=== PATIENT | male | born 1975 | race American Indian/Alaskan Native ===

== ENCOUNTER 2017-06-22 23:07 | Inpatient (IN) | payer SELFPAY ==
[2017-06-22] MEDS ORDERED: TYLENOL ONE (23:15)
[2017-06-22] MEDS ORDERED: TYLENOL PO ONE (23:31)
[2017-06-23 00:04] LABS: Hematocrit 36.3 % (35.5-45.6); Mean Corpuscular HGB Conc 33 % (32-34); Mean Corpuscular Hemoglobin 30 pg (28-32); Mean Corpuscular Volume 90 fl (84-94); Platelet Count 288 K/mm3 (140-440); Red Blood Count 4.04 M/mm3 (3.65-5.03); Red Cell Distribution Width 15.9 % (13.2-15.2)
[2017-06-23 00:19] LABS: White Blood Count 27.1 K/mm3 (4.5-11.0)
[2017-06-23 00:20] LABS: INR 1.17 (0.87-1.13)
[2017-06-23 00:26] LABS: Alanine Aminotransferase 30 units/L (7-56); Albumin 3.7 g/dL (3.9-5); Albumin/Globulin Ratio 0.8 %; Alkaline Phosphatase 80 units/L (35-129); Anion Gap 21 mmol/L; Blood Urea Nitrogen 9 mg/dL (9-20); Calcium 9.1 mg/dL (8.4-10.2); Carbon Dioxide 21 mmol/L (22-30); Chloride 96.2 mmol/L (98-107); Glucose 174 mg/dL (75-100); Potassium 4.2 mmol/L (3.6-5.0); Sodium 134 mmol/L (137-145); Total Protein 8.2 g/dL (6.3-8.2)
[2017-06-23 04:29] LABS: Basophils % (Manual) 0 % (0.0-1.8); Blastocytes % (Manual) 0 %; Eosinophils % (Manual) 0 % (0.0-4.3)
[2017-06-23 04:30] LABS: Anisocytosis 1+; Diff Status Complete; Spherocytes Few
[2017-06-23] MEDS ORDERED: TORADOL IV ONE (04:54)
[2017-06-23] MEDS ORDERED: TYLENOL PO ONE (04:54)
[2017-06-23] MEDS ORDERED: NACL 0.9% 1000 ML 1,000 ML IV ONE ×3 (04:54→06:40)
[2017-06-23] MEDS ORDERED: TORADOL ONE (04:55)
[2017-06-23] MEDS ORDERED: NACL 0.9% 1000 ML 1,000 ML ONE (04:55)
--- NOTE | 2017-06-23 06:05 | Cat Scan Report ---
FINAL REPORT PROCEDURE: CT HEAD/BRAIN WO CON TECHNIQUE: Computerized tomography of the head was performed without contrast material. HISTORY: Headache COMPARISON: No prior studies are available for comparison. FINDINGS: Skull and scalp: Normal. Paranasal sinuses: Normal. Ventricles and subarachnoid spaces: Normal. Cerebrum: No evidence of hemorrhage, acute infarction or mass . Cerebellum and brainstem: No evidence of hemorrhage, acute infarction or mass. Vasculature: Normal. Comments: None. IMPRESSION: Normal Examination
[2017-06-23 06:25] LABS: Bilirubin,Urine NEG (Negative); Blood,Urine SM (Negative); Ketones,Urine NEG (Negative); Leukocyte Esterase,Urine NEG (Negative); Mucus,Urine 3+ /HPF; Nitrite,Urine NEG (Negative)
[2017-06-23 06:27] LABS: Protein,Urine >500 mg/dL (Negative)
[2017-06-23] MEDS ORDERED: VANCOMYCIN/NS 1 GM/250 ML 1 GM/250 ML BAG IV ONE (06:40)
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
[2017-06-23] MEDS ORDERED: VANCOMYCIN VIAL IV ONE (07:59)
[2017-06-23] MEDS ORDERED: VANCOMYCIN PHARMACY TO DOSE IV SCH (08:00)
[2017-06-23] MEDS: CLEOCIN 900 MG/50 mL 900 MG/50 ML BAG IV ONE ×2 (08:40→12:29)
--- NOTE | 2017-06-23 09:17 | XRay Report ---
Chest 2 views: History: Fever. Findings: Normal cardiomediastinal silhouette. Trachea is midline. No consolidation, pneumothorax or pleural effusion. Impression: No acute cardiopulmonary findings.
--- NOTE | 2017-06-23 11:30 | History and Physical Report ---
History of Present Illness Date of examination: 06/23/17 Date of admission: 06/23/17 07:36 Chief complaint: fever, h/a History of present illness: 41-year-old male with no medical history here with complaint of fever throat and dental pain for the last month. Patient states he has been having intermittent chills over the course of last month. Over the last couple of days he's had significant pain in his teeth. He complains of a headache and a fever. He has no photophobia. He does complain of some neck pain but he has no neck stiffness or meningismus. Denies cough shortness of breath dysuria. 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 Patient denies any cough or cold-like symptoms. No nausea or vomiting. No frequency or dysuria. Past History Past Medical History: No medical history Past Surgical History: No surgical history Social history: no significant social history Family history: no significant family history Medications and Allergies Allergies Allergy/AdvReac Type Severity Reaction Status Date / Time No Known Allergies Allergy Unverified 10/02/15 07:50 Active Meds: Active Medications Enoxaparin Sodium (Lovenox) 40 mg SUB-Q QDAY ANNE Piperacillin Sod/Tazobactam Sod (Zosyn/Ns 4.5gm/100ml) 4.5 gm in 100 mls @ 200 mls/hr IV Q8H ANNE PRN Reason: Protocol Vancomycin HCl 1,250 mg/ (Sodium Chloride) 262.5 mls @ 166.667 mls/hr IV Q12H ANNE Vancomycin HCl (Vancomycin Pharmacy To Dose) 1 each IV PKCONSULT ANNE PRN Reason: Protocol Review of Systems All systems: negative Exam - Constitutional Vitals: Temp Pulse Resp BP Pulse Ox 102.3 F H 108 H 20 119/56 99 06/23/17 10:25 06/23/17 10:25 06/23/17 10:25 06/23/17 10:25 06/23/17 09:02 General appearance: Present: no acute distress, well-nourished - EENT Eyes: Present: PERRL ENT: hearing intact, clear oral mucosa - Neck Neck: Present: supple, normal ROM - Respiratory Respiratory effort: normal Respiratory: bilateral: CTA - Cardiovascular Heart Sounds: Present: S1 & S2. Absent: rub, click - Extremities Extremities: pulses symmetrical, No edema Peripheral Pulses: within normal limits - Abdominal General gastrointestinal: Present: soft, non-tender, non-distended, normal bowel sounds Male genitourinary: Present: normal - Integumentary Integumentary: Present: clear, warm, dry - Musculoskeletal Musculoskeletal: gait normal, strength equal bilaterally - Psychiatric Psychiatric: appropriate mood/affect, intact judgment & insight - Neurologic Neurologic: CNII-XII intact, moves all extremities Results - Labs CBC & Chem 7: 06/22/17 23:30 06/22/17 23:20 Labs: Laboratory Last Values WBC 27.1 K/mm3 (4.5-11.0) H 06/22/17 23:30 RBC 4.04 M/mm3 (3.65-5.03) 06/22/17 23:30 Hgb 12.0 gm/dl (11.8-15.2) 06/22/17 23:30 Hct 36.3 % (35.5-45.6) 06/22/17 23:30 MCV 90 fl (84-94) 06/22/17 23:30 MCH 30 pg (28-32) 06/22/17 23:30 MCHC 33 % (32-34) 06/22/17 23:30 RDW 15.9 % (13.2-15.2) H 06/22/17 23:30 Plt Count 288 K/mm3 (140-440) 06/22/17 23:30 Add Manual Diff Complete 06/22/17 23:30 Total Counted 100 06/22/17 23:30 Seg Neuts % (Manual) 42.0 % (40.0-70.0) 06/22/17 23:30 Band Neutrophils % 31.0 % 06/22/17 23:30 Lymphocytes % (Manual) 11.0 % (13.4-35.0) L 06/22/17 23:30 Reactive Lymphs % (Man) 0 % 06/22/17 23:30 Monocytes % (Manual) 14.0 % (0.0-7.3) H 06/22/17 23:30 Eosinophils % (Manual) 0 % (0.0-4.3) 06/22/17 23:30 Basophils % (Manual) 0 % (0.0-1.8) 06/22/17 23:30 Metamyelocytes % 2.0 % 06/22/17 23:30 Myelocytes % 0 % 06/22/17 23:30 Promyelocytes % 0 % 06/22/17 23:30 Blast Cells % 0 % 06/22/17 23:30 Nucleated RBC % Not Reportable 06/22/17 23:30 Seg Neutrophils # Man 11.4 K/mm3 (1.8-7.7) H 06/22/17 23:30 Band Neutrophils # 8.4 K/mm3 06/22/17 23:30 Lymphocytes # (Manual) 3.0 K/mm3 (1.2-5.4) 06/22/17 23:30 Abs React Lymphs (Man) 0.0 K/mm3 06/22/17 23:30 Monocytes # (Manual) 3.8 K/mm3 (0.0-0.8) H 06/22/17 23:30 Eosinophils # (Manual) 0.0 K/mm3 (0.0-0.4) 06/22/17 23:30 Basophils # (Manual) 0.0 K/mm3 (0.0-0.1) 06/22/17 23:30 Metamyelocytes # 0.5 K/mm3 06/22/17 23:30 Myelocytes # 0.0 K/mm3 06/22/17 23:30 Promyelocytes # 0.0 K/mm3 06/22/17 23:30 Blast Cells # 0.0 K/mm3 06/22/17 23:30 WBC Morphology Not Reportable 06/22/17 23:30 Hypersegmented Neuts Not Reportable 06/22/17 23:30 Hyposegmented Neuts Not Reportable 06/22/17 23:30 Hypogranular Neuts Not Reportable 06/22/17 23:30 Smudge Cells Not Reportable 06/22/17 23:30 Toxic Granulation Not Reportable 06/22/17 23:30 Toxic Vacuolation Not Reportable 06/22/17 23:30 Dohle Bodies Not Reportable 06/22/17 23:30 Pelger-Huet Anomaly Not Reportable 06/22/17 23:30 Yung Rods Not Reportable 06/22/17 23:30 Platelet Estimate Appears normal 06/22/17 23:30 Clumped Platelets Not Reportable 06/22/17 23:30 Plt Clumps, EDTA Not Reportable 06/22/17 23:30 Large Platelets Not Reportable 06/22/17 23:30 Giant Platelets Not Reportable 06/22/17 23:30 Platelet Satelliting Not Reportable 06/22/17 23:30 Plt Morphology Comment Not Reportable 06/22/17 23:30 RBC Morphology Not Reportable 06/22/17 23:30 Dimorphic RBCs Not Reportable 06/22/17 23:30 Polychromasia Not Reportable 06/22/17 23:30 Hypochromasia Not Reportable 06/22/17 23:30 Poikilocytosis Not Reportable 06/22/17 23:30 Anisocytosis 1+ 06/22/17 23:30 Microcytosis Not Reportable 06/22/17 23:30 Macrocytosis Not Reportable 06/22/17 23:30 Spherocytes Few 06/22/17 23:30 Pappenheimer Bodies Not Reportable 06/22/17 23:30 Sickle Cells Not Reportable 06/22/17 23:30 Target Cells Not Reportable 06/22/17 23:30 Tear Drop Cells Not Reportable 06/22/17 23:30 Ovalocytes Not Reportable 06/22/17 23:30 Helmet Cells Not Reportable 06/22/17 23:30 Garber-[place] Bodies Not Reportable 06/22/17 23:30 [place] Rings Not Reportable 06/22/17 23:30 [place] Cells Not Reportable 06/22/17 23:30 Bite Cells Not Reportable 06/22/17 23:30 Crenated Cell Not Reportable 06/22/17 23:30 Elliptocytes Not Reportable 06/22/17 23:30 Acanthocytes (Spur) Not Reportable 06/22/17 23:30 Rouleaux Not Reportable 06/22/17 23:30 Hemoglobin C Crystals Not Reportable 06/22/17 23:30 Schistocytes Not Reportable 06/22/17 23:30 Malaria parasites Not Reportable 06/22/17 23:30 Jamari Bodies Not Reportable 06/22/17 23:30 Hem Pathologist Commnt No 06/22/17 23:30 PT 14.8 Sec. (12.2-14.9) 06/22/17 23:20 INR 1.17 (0.87-1.13) H 06/22/17 23:20 VBG pH 7.498 (7.320-7.420) H 06/22/17 23:20 Sodium 134 mmol/L (137-145) L 06/22/17 23:20 Potassium 4.2 mmol/L (3.6-5.0) 06/22/17 23:20 Chloride 96.2 mmol/L (98-107) L 06/22/17 23:20 Carbon Dioxide 21 mmol/L (22-30) L 06/22/17 23:20 Anion Gap 21 mmol/L 06/22/17 23:20 BUN 9 mg/dL (9-20) 06/22/17 23:20 Creatinine 1.0 mg/dL (0.8-1.5) 06/22/17 23:20 Estimated GFR > 60 ml/min 06/22/17 23:20 BUN/Creatinine Ratio 9.00 % 06/22/17 23:20 Glucose 174 mg/dL (75-100) H 06/22/17 23:20 Lactic Acid 2.00 mmol/L (0.7-2.0) 06/23/17 08:09 Calcium 9.1 mg/dL (8.4-10.2) 06/22/17 23:20 Total Bilirubin 0.40 mg/dL (0.1-1.2) 06/22/17 23:20 AST 23 units/L (5-40) 06/22/17 23:20 ALT 30 units/L (7-56) 06/22/17 23:20 Alkaline Phosphatase 80 units/L (35-129) 06/22/17 23:20 Total Protein 8.2 g/dL (6.3-8.2) 06/22/17 23:20 Albumin 3.7 g/dL (3.9-5) L 06/22/17 23:20 Albumin/Globulin Ratio 0.8 % 06/22/17 23:20 Urine Color Christina (Yellow) 06/23/17 05:15 Urine Turbidity Clear (Clear) 06/23/17 05:15 Urine pH 5.0 (5.0-7.0) 06/23/17 05:15 Ur Specific [place] 1.033 (1.003-1.030) H 06/23/17 05:15 Urine Protein >500 mg/dL (Negative) 06/23/17 05:15 Urine Glucose (UA) Neg mg/dL (Negative) 06/23/17 05:15 Urine Ketones Neg mg/dL (Negative) 06/23/17 05:15 Urine Blood Sm (Negative) 06/23/17 05:15 Urine Nitrite Neg (Negative) 06/23/17 05:15 Urine Bilirubin Neg (Negative) 06/23/17 05:15 Urine Urobilinogen 2.0 mg/dL (<2.0) 06/23/17 05:15 Ur Leukocyte Esterase Neg (Negative) 06/23/17 05:15 Urine WBC (Auto) 2.0 /HPF (0.0-6.0) 06/23/17 05:15 Urine RBC (Auto) 6.0 /HPF (0.0-6.0) 06/23/17 05:15 U Epithel Cells (Auto) < 1.0 /HPF (0-13.0) 06/23/17 05:15 Hyaline Casts 4 /LPF 06/23/17 05:15 Urine Mucus 3+ /HPF 06/23/17 05:15 Blood Type O POSITIVE 06/23/17 08:09 Antibody Screen Negative 06/23/17 08:09 Assessment and Plan Assessment and plan: Septic shock. Patient meets criteria given the leukocytosis, fever, tachycardia and hypotension. Patient has responded to IV fluid resuscitation. Continue IV fluids. Continue sepsis protocol. Follow-up chest x-ray. UA is negative. Follow-up blood cultures and lactic acid levels. Continue IV antibiotics. Consider ID consultation. Leukocytosis. As above. Headache. CT scan of the head is negative. Patient with no meningismus.
[2017-06-23 11:54] LABS: ISTAT Base Excess -3; ISTAT DEVICE 0; ISTAT HCO3 20.9; ISTAT PCO2 30.8 (35-45); ISTAT PH 7.439 (7.35-7.45); ISTAT PO2 76 (80-105); ISTAT SO2 96; ISTAT TCO2 22
[2017-06-23] MEDS: LOVENOX SUB-Q SCH (12:27)
[2017-06-23] MEDS: ZOSYN/NS 4.5GM/100ML 4.5 GM/100 ML VIAL IV SCH ×2 (14:37→21:19)
[2017-06-23] MEDS: TYLENOL PO PRN ×2 (14:55→21:23)
[2017-06-23] MEDS: VANCOMYCIN 1,250 MG in NACL 0.9% 250ML 250 ML IV SCH (18:29)
[2017-06-24] MEDS ORDERED: ROCEPHIN/NS 2 GM/100 ML 2 GM/100 ML BAG IV SCH (01:21)
[2017-06-24] MEDS: TYLENOL PO PRN ×4 (01:46→23:55)
[2017-06-24 02:28] LABS: Bilirubin,Urine NEG (Negative); Blood,Urine MOD (Negative); Ketones,Urine NEG (Negative); Leukocyte Esterase,Urine NEG (Negative); Mucus,Urine FEW /HPF; Nitrite,Urine NEG (Negative); Urobilinogen,Urine < 2.0 mg/dL (<2.0)
[2017-06-24] MEDS: ZOSYN/NS 4.5GM/100ML 4.5 GM/100 ML VIAL IV SCH (04:18)
[2017-06-24] MEDS: VANCOMYCIN 1,250 MG in NACL 0.9% 250ML 250 ML IV SCH ×3 (05:11→23:56)
[2017-06-24] MEDS: ROCEPHIN/NS 2 GM/100 ML 2 GM/100 ML BAG IV SCH ×2 (10:00→23:03)
[2017-06-24] MEDS: LOVENOX SUB-Q SCH (10:57)
--- NOTE | 2017-06-24 11:00 | Progress Note ---
Assessment and Plan Assessment and plan: Septic shock. Improved. Continue aggressive IV fluid resuscitation. Continue sepsis protocol. Follow-up blood cultures and lactic acid levels. Continue IV antibiotics. Consider ID consultation. Diarrhea. Check stool for C. difficile, fecal leukocytes Hyperglycemia. Patient reports no history of diabetes mellitus. Check hemoglobin A1c. Consider sliding scale. Leukocytosis. As above. Headache. CT scan of the head is negative. Patient with no meningismus. History Interval history: No new issues overnight. However, patient does report 3 episodes of watery diarrhea yesterday and 2 more episodes this morning. Hospitalist Physical - Constitutional Vitals: Temp Pulse Resp BP Pulse Ox 102.6 F H 101 H 22 100/80 98 06/24/17 08:00 06/24/17 08:00 06/24/17 08:00 06/24/17 08:00 06/24/17 08:00 General appearance: Present: no acute distress, well-nourished - EENT Eyes: Present: PERRL, EOM intact ENT: hearing intact, clear oral mucosa, dentition normal - Neck Neck: Present: supple, normal ROM - Respiratory Respiratory effort: normal Respiratory: bilateral: CTA - Cardiovascular Rhythm: regular Heart Sounds: Present: S1 & S2. Absent: gallop, rub - Extremities Extremities: no ischemia, No edema, Full ROM - Abdominal General gastrointestinal: soft, non-tender, non-distended, normal bowel sounds - Integumentary Integumentary: Present: clear, warm, dry - Neurologic Neurologic: CNII-XII intact, moves all extremities Results - Labs CBC & Chem 7: 06/22/17 23:30 06/22/17 23:20 Labs: Laboratory Last Values WBC 27.1 K/mm3 (4.5-11.0) H 06/22/17 23:30 RBC 4.04 M/mm3 (3.65-5.03) 06/22/17 23:30 Hgb 12.0 gm/dl (11.8-15.2) 06/22/17 23:30 Hct 36.3 % (35.5-45.6) 06/22/17 23:30 MCV 90 fl (84-94) 06/22/17 23:30 MCH 30 pg (28-32) 06/22/17 23:30 MCHC 33 % (32-34) 06/22/17 23:30 RDW 15.9 % (13.2-15.2) H 06/22/17 23:30 Plt Count 288 K/mm3 (140-440) 06/22/17 23:30 Add Manual Diff Complete 06/22/17 23:30 Total Counted 100 06/22/17 23:30 Seg Neuts % (Manual) 42.0 % (40.0-70.0) 06/22/17 23:30 Band Neutrophils % 31.0 % 06/22/17 23:30 Lymphocytes % (Manual) 11.0 % (13.4-35.0) L 06/22/17 23:30 Reactive Lymphs % (Man) 0 % 06/22/17 23:30 Monocytes % (Manual) 14.0 % (0.0-7.3) H 06/22/17 23:30 Eosinophils % (Manual) 0 % (0.0-4.3) 06/22/17 23:30 Basophils % (Manual) 0 % (0.0-1.8) 06/22/17 23:30 Metamyelocytes % 2.0 % 06/22/17 23:30 Myelocytes % 0 % 06/22/17 23:30 Promyelocytes % 0 % 06/22/17 23:30 Blast Cells % 0 % 06/22/17 23:30 Nucleated RBC % Not Reportable 06/22/17 23:30 Seg Neutrophils # Man 11.4 K/mm3 (1.8-7.7) H 06/22/17 23:30 Band Neutrophils # 8.4 K/mm3 06/22/17 23:30 Lymphocytes # (Manual) 3.0 K/mm3 (1.2-5.4) 06/22/17 23:30 Abs React Lymphs (Man) 0.0 K/mm3 06/22/17 23:30 Monocytes # (Manual) 3.8 K/mm3 (0.0-0.8) H 06/22/17 23:30 Eosinophils # (Manual) 0.0 K/mm3 (0.0-0.4) 06/22/17 23:30 Basophils # (Manual) 0.0 K/mm3 (0.0-0.1) 06/22/17 23:30 Metamyelocytes # 0.5 K/mm3 06/22/17 23:30 Myelocytes # 0.0 K/mm3 06/22/17 23:30 Promyelocytes # 0.0 K/mm3 06/22/17 23:30 Blast Cells # 0.0 K/mm3 06/22/17 23:30 WBC Morphology Not Reportable 06/22/17 23:30 Hypersegmented Neuts Not Reportable 06/22/17 23:30 Hyposegmented Neuts Not Reportable 06/22/17 23:30 Hypogranular Neuts Not Reportable 06/22/17 23:30 Smudge Cells Not Reportable 06/22/17 23:30 Toxic Granulation Not Reportable 06/22/17 23:30 Toxic Vacuolation Not Reportable 06/22/17 23:30 Dohle Bodies Not Reportable 06/22/17 23:30 Pelger-Huet Anomaly Not Reportable 06/22/17 23:30 Yung Rods Not Reportable 06/22/17 23:30 Platelet Estimate Appears normal 06/22/17 23:30 Clumped Platelets Not Reportable 06/22/17 23:30 Plt Clumps, EDTA Not Reportable 06/22/17 23:30 Large Platelets Not Reportable 06/22/17 23:30 Giant Platelets Not Reportable 06/22/17 23:30 Platelet Satelliting Not Reportable 06/22/17 23:30 Plt Morphology Comment Not Reportable 06/22/17 23:30 RBC Morphology Not Reportable 06/22/17 23:30 Dimorphic RBCs Not Reportable 06/22/17 23:30 Polychromasia Not Reportable 06/22/17 23:30 Hypochromasia Not Reportable 06/22/17 23:30 Poikilocytosis Not Reportable 06/22/17 23:30 Anisocytosis 1+ 06/22/17 23:30 Microcytosis Not Reportable 06/22/17 23:30 Macrocytosis Not Reportable 06/22/17 23:30 Spherocytes Few 06/22/17 23:30 Pappenheimer Bodies Not Reportable 06/22/17 23:30 Sickle Cells Not Reportable 06/22/17 23:30 Target Cells Not Reportable 06/22/17 23:30 Tear Drop Cells Not Reportable 06/22/17 23:30 Ovalocytes Not Reportable 06/22/17 23:30 Helmet Cells Not Reportable 06/22/17 23:30 Garber-Morada Bodies Not Reportable 06/22/17 23:30 [place] Rings Not Reportable 06/22/17 23:30 [place] Cells Not Reportable 06/22/17 23:30 Bite Cells Not Reportable 06/22/17 23:30 Crenated Cell Not Reportable 06/22/17 23:30 Elliptocytes Not Reportable 06/22/17 23:30 Acanthocytes (Spur) Not Reportable 06/22/17 23:30 Rouleaux Not Reportable 06/22/17 23:30 Hemoglobin C Crystals Not Reportable 06/22/17 23:30 Schistocytes Not Reportable 06/22/17 23:30 Malaria parasites Not Reportable 06/22/17 23:30 Jamari Bodies Not Reportable 06/22/17 23:30 Hem Pathologist Commnt No 06/22/17 23:30 PT 14.8 Sec. (12.2-14.9) 06/22/17 23:20 INR 1.17 (0.87-1.13) H 06/22/17 23:20 POC ABG pH 7.439 (7.35-7.45) 06/23/17 11:41 POC ABG pCO2 30.8 (35-45) L 06/23/17 11:41 POC ABG pO2 76 (80-105) L 06/23/17 11:41 POC ABG HCO3 20.9 06/23/17 11:41 POC ABG Total CO2 22 06/23/17 11:41 POC ABG O2 Sat 96 06/23/17 11:41 POC ABG Base Excess -3 06/23/17 11:41 VBG pH 7.498 (7.320-7.420) H 06/22/17 23:20 FiO2 21 % 06/23/17 11:41 Sodium 134 mmol/L (137-145) L 06/22/17 23:20 Potassium 4.2 mmol/L (3.6-5.0) 06/22/17 23:20 Chloride 96.2 mmol/L (98-107) L 06/22/17 23:20 Carbon Dioxide 21 mmol/L (22-30) L 06/22/17 23:20 Anion Gap 21 mmol/L 06/22/17 23:20 BUN 9 mg/dL (9-20) 06/22/17 23:20 Creatinine 1.0 mg/dL (0.8-1.5) 06/22/17 23:20 Estimated GFR > 60 ml/min 06/22/17 23:20 BUN/Creatinine Ratio 9.00 % 06/22/17 23:20 Glucose 174 mg/dL (75-100) H 06/22/17 23:20 Lactic Acid 2.00 mmol/L (0.7-2.0) 06/23/17 14:05 Calcium 9.1 mg/dL (8.4-10.2) 06/22/17 23:20 Total Bilirubin 0.40 mg/dL (0.1-1.2) 06/22/17 23:20 AST 23 units/L (5-40) 06/22/17 23:20 ALT 30 units/L (7-56) 06/22/17 23:20 Alkaline Phosphatase 80 units/L (35-129) 06/22/17 23:20 Total Protein 8.2 g/dL (6.3-8.2) 06/22/17 23:20 Albumin 3.7 g/dL (3.9-5) L 06/22/17 23:20 Albumin/Globulin Ratio 0.8 % 06/22/17 23:20 Urine Color Yellow (Yellow) 06/24/17 02:05 Urine Turbidity Slightly-cloudy (Clear) 06/24/17 02:05 Urine pH 5.0 (5.0-7.0) 06/24/17 02:05 Ur Specific [place] 1.023 (1.003-1.030) 06/24/17 02:05 Urine Protein 100 mg/dl mg/dL (Negative) 06/24/17 02:05 Urine Glucose (UA) Neg mg/dL (Negative) 06/24/17 02:05 Urine Ketones Neg mg/dL (Negative) 06/24/17 02:05 Urine Blood Mod (Negative) 06/24/17 02:05 Urine Nitrite Neg (Negative) 06/24/17 02:05 Urine Bilirubin Neg (Negative) 06/24/17 02:05 Urine Urobilinogen < 2.0 mg/dL (<2.0) 06/24/17 02:05 Ur Leukocyte Esterase Neg (Negative) 06/24/17 02:05 Urine WBC (Auto) 5.0 /HPF (0.0-6.0) 06/24/17 02:05 Urine RBC (Auto) 1.0 /HPF (0.0-6.0) 06/24/17 02:05 U Epithel Cells (Auto) < 1.0 /HPF (0-13.0) 06/24/17 02:05 Amorphous Crystals Few 06/24/17 02:05 Hyaline Casts 4 /LPF 06/23/17 05:15 Urine Mucus Few /HPF 06/24/17 02:05 Blood Type O POSITIVE 06/23/17 08:09 Antibody Screen Negative 06/23/17 08:09
[2017-06-24] MEDS ORDERED: MORPHINE IV PRN (12:49)
[2017-06-24 13:24] LABS: Hematocrit 32.9 % (35.5-45.6); Hemoglobin 10.7 gm/dl (11.8-15.2); Mean Corpuscular HGB Conc 32 % (32-34); Mean Corpuscular Hemoglobin 29 pg (28-32); Mean Corpuscular Volume 90 fl (84-94); Platelet Count 266 K/mm3 (140-440); Red Blood Count 3.65 M/mm3 (3.65-5.03); Red Cell Distribution Width 16.1 % (13.2-15.2)
[2017-06-24 13:33] LABS: White Blood Count 24.2 K/mm3 (4.5-11.0)
[2017-06-24 16:19] LABS: Basophils % (Manual) 0 % (0.0-1.8); Blastocytes % (Manual) 0 %; Eosinophils % (Manual) 0 % (0.0-4.3)
[2017-06-24 16:20] LABS: Anisocytosis 1+; Diff Status Complete; Platelet Estimate Consistent w Auto
[2017-06-24] MEDS ORDERED: NACL 0.9% 1000 ML 1,000 ML IV SCH (18:00)
--- NOTE | 2017-06-25 01:47 | Admit Criteria Form ---
Admission Criteria Documentation: SEVERE SEPSIS Clinical Indications for Admission to Inpatient Care (Place 'X' for any and all applicable criteria): Hospital admission is needed for appropriate care of the patient because of ANY ONE of the following: [X]I. Hemodynamic instability indicated by ANY ONE of the following(1)(2)(3)( 4)(5): [X]a. Vital sign abnormality not readily corrected by appropriate treatment within 12 to 24 hours indicated by ANY ONE of the following: [X]i) Tachycardia that persists despite appropriate treatment [X]ii) Hypotension that persists despite appropriate treatment []iii) Orthostatic vital sign changes that persist despite appropriate treatment []b. Vital sign abnormality that is severe indicated by ANY ONE of the following: []i. Inadequate perfusion indicated by ANY ONE of the following: []1) Lactic acidosis (greater than 2 mmol/L) []2) New abnormal capillary refill (greater than 3 seconds) []3) Reduced urine output []4) New altered mental status []5) Myocardial Ischemia []ii. Mean arterial pressure [A] less than 60 mm Hg []iii. Mean arterial pressure[A] less than 70 mm Hg after 30 minutes of appropriate treatment (eg, fluid resuscitation) []iv. Sustained heart rate greater than 120 beats per minute in adult []v. IV inotropic or vasopressor medication required to maintain adequate blood pressure or perfusion []II. Systemic or infectious condition causing severe symptoms or findings not responsive to emergency or observation care treatment (as appropriate) indicated by ANY ONE of the following: []a. Cardiac arrhythmias of immediate concern(1)(2)(3) []b. Severe endocrine disorder (eg, thyrotoxicosis, adrenal insufficiency)(4)(5) []c. Seizures (eg, new or recurrent)(6) []d. New-onset end organ failure or dysfunction as indicated by ANY ONE of the following: []i. Acute unexplained hypoxemia (eg, not from lung infection or chronic disease)(7)(8)(9) []ii. Acute renal failure as indicated by new onset of ANY ONE of the following(10)(11)(12)(13)(14): []1) 3-fold rise in serum creatinine from baseline []2) Serum creatinine greater than 4 mg/dL (354 micromoles/L) with acute rise greater than 0.5 mg/dL (44.2 micromoles/L) []3) Reduction of more than 75% in estimated glomerular filtration rate from baseline. []4) Estimated glomerular filtration rate less than 35 mL/min/1.73m2 ( 0.59 mL/sec/1.73m2) in child younger than 18 years. []5) Cessation of urine output indicated by ALL of the following: []A. Adequate volume status []B. Inadequate urine output as indicated by ANY ONE of the following: []a. Urine output less than 0.3 mL/kg/hr for 24 hours []b. Anuria (urine output less than 0.1 mL/kg/hr) for 12 hours []iii. Acute mental status changes(15) []iv. Acute hepatic failure (eg, plasma bilirubin greater than 4 mg/ dL (68 micromoles/L), new INR greater than 2.0)(16)(17) []e. Unmanageable nausea and vomiting(18) []f. New-onset or uncontrolled central diabetes insipidus(19)(20) []g. Clinically significant dehydration(18)(21) []h. Hypoglycemia(22) []i. Acidosis (pH less than 7.35) or alkalosis (pH greater than 7.45)( 22)(23) []j. Toxic drug level that indicates need for specific monitoring or treatment(24)(25) []k. Severe electrolyte abnormalities indicated by ALL of the following( 1)(2)(3): []i. Electrolytes and associated findings are not as expected for patient baseline or acceptable treatment effects. []ii. Severe abnormalities indicated by ANY ONE of the following: []1) Sodium less than 130 mEq/L (mmol/L) (new) []2) Sodium less than 135 mEq/L (mmol/L) with ANY ONE of the following: []A. Uncorrectable (to near normal or chronic baseline) after trial of outpatient and emergency treatment []B. Altered mental status []C. Seizures []D. Severe medical etiology requiring inpatient management (eg , heart failure, hypovolemia) []3) Sodium greater than 155 mEq/L (mmol/L) []4) Sodium greater than 150 mEq/L (mmol/L) with ANY ONE of the following: []A. Uncorrectable (to near normal or chronic baseline) with outpatient and emergency treatment []B. Altered mental status []C. Seizures []D. Severe medical etiology (eg, hypovolemia, diabetes insipidus) []5) Potassium less than 2.5 mEq/L (mmol/L) despite outpatient and emergency treatment []6) Potassium less than 3 mEq/L (mmol/L) with ANY ONE of the following : []A. Weakness []B. Cardiac abnormality (eg, arrhythmia, conduction disturbance ) []C. Cardiac ischemia []D. Ileus []E. Ongoing medical cause requiring inpatient management (eg, acute renal wasting or SIADH) []F. Other severe symptoms []7) Potassium greater than 6.5 mEq/L (mmol/L) []8) Potassium greater than 5 mEq/L (mmol/L) with ANY ONE of the following: []A. Uncorrectable (to near normal or chronic baseline) with outpatient and emergency treatment []B. Severe ECG findings[A] []C. Acute worsening of renal failure (creatinine greater than 2.5 mg/dL (221 micromoles/L) or significant elevation for age and size) []D. Severe weakness []E. Severe medical etiology (eg, hemolysis, infection, drug overdose) []9) Calcium less than 7 mg/dL (1.75 mmol/L) despite outpatient and emergency treatment(5) []10) Calcium less than 8 mg/dL (2 mmol/L) with significant symptoms or findings (eg, altered mental status, muscle spasms, seizures, breathing difficulty, cardiac abnormality (eg, arrhythmia or conduction disturbance))(5) []11) Calcium greater than 14 mg/dL (3.5 mmol/L)(5) []12) Calcium greater than 12 mg/dL (3 mmol/L) with ANY ONE of the following(5): []A. Uncorrectable (to near normal or chronic baseline) with outpatient and emergency treatment []B. Significant dehydration or hypovolemia as indicated by ALL of the following(3)(6)(7): []a. Not resolved with initial treatments []b. Clinically significant dehydration as indicated by ANY ONE of the following: [](1) Vomiting refractory to outpatient treatment (ie, precluding oral rehydration) [](2) Inability to drink [](3) Hypernatremia or other electrolyte abnormality unable to be corrected with outpatient and emergency treatment [](4) Failure to remain hydrated with outpatient therapy [](5) Reduced urine output [](6) Hypotension [](7) Serious cause for dehydration requiring acute hospitalization ( eg, bowel obstruction, increased intracranial pressure, infectious cause) [](8) Child with ANY ONE of the following(8): [](i) Severe abdominal tenderness [](ii) Adequate care not available at home [](iii) Severe dehydration (greater than 9% loss of body weight) []C. Significant symptoms or findings (eg, altered mental status , cardiac abnormality (eg, arrhythmia, conduction disturbance), malignant etiology requiring inpatient treatment) []13) Phosphorus less than 1 mg/dL (0.32 mmol/L) []14) Phosphorus less than 1.5 mg/dL (0.48 mmol/L) with ANY ONE of the following: []A. Patient unresponsive to outpatient and emergency treatment []B. Significant symptoms or findings (eg, weakness, altered mental status, breathing difficulty, seizures, rhabdomyolysis) []15) Phosphorus greater than 10 mg/dL (3.2 mmol/L) []16) Phosphorus greater than 4.5 mg/dL (1.45 mmol/L) (new) with ANY ONE of the following: []A. Severe medical etiology (eg, crush injury, acute renal failure) []B. Associated hypocalcemia with significant findings (eg, neurologic symptoms, altered mental status, muscle spasms, seizures, breathing difficulty, cardiac abnormality (eg, arrhythmia, conduction disturbance)) []16) Magnesium less than 1 mg/dL (0.41 mmol/L) []17) Magnesium less than 1.5 mg/dL (0.62 mmol/L) with ANY ONE of the following: []A. Patient unresponsive to outpatient and emergency treatment []B. Associated hypocalcemia with significant findings (eg, altered mental status, muscle spasms, seizures, breathing difficulty, cardiac abnormality (eg, arrhythmia, conduction disturbance)) []C. Associated hypokalemia (potassium less than 3 mEq/L (mmol/L )) with risk of arrhythmia []18) Magnesium greater than 4 mEq/L (2 mmol/L) []19) Magnesium greater than 2.5 mEq/L (1.25 mmol/L) with significant symptoms or findings (eg, weakness, altered mental status, cardiac abnormality (eg, arrhythmia, conduction disturbance), breathing difficulty, severe medical etiology (eg, renal failure, hypovolemia)) []20) Uric acid greater than 20 mg/dL (1190 micromoles/L)(9) []21) Uric acid greater than 8 mg/dL (476 micromoles/L) with significant symptoms or findings of tumor lysis syndrome (eg, creatinine greater than 1.5 times upper limit of normal, cardiac abnormality (eg , arrhythmia, conduction disturbance), seizure)(9) []III. High fever or other high-risk infection situation as indicated by ANY ONE of the following(26)(27)(28): []a. Outpatient and observation care antimicrobial treatment unavailable, not effective, or not appropriate []b. Documented bacteremia []c. Temperature greater than 104.9 degrees F (40.5 degrees C) (oral) []d. Temperature greater than 103.1 degrees F (39.5 degrees C) (oral) or less than 96.8 degrees F (36 degrees C) (rectal) that does not respond to emergency treatment and observation care []IV. High-risk febrile neutropenia[A] as indicated by ANY ONE of the following(29)(30)(31)(32): []a. Profound neutropenia[B] anticipated to extend for more than 7 days []b. Hemodynamic instability []c. Hypoxemia []d. Tachypnea []e. Altered mental status []f. New-onset abdominal pain []g. New-onset vomiting or diarrhea []h. Oral or gastrointestinal mucositis that interferes with swallowing or causes severe diarrhea []i. Focal infection (eg, cellulitis, pneumonia, central line or catheter infection, perirectal abscess) []j. Renal insufficiency (eg, GFR of less than 30 mL/min/1.73m2 (0.5 mL/sec /1.73m2)). []k. Severe liver dysfunction (transaminase levels greater than 5 times normal) []l. Platelet count less than 50,000/mm3 (50 x109/L)(33) []m. Leukemia or lymphoma induction therapy []n. Leukemia not in complete remission or with evidence of disease progression []o. Bone marrow transplant patient []p. Alemtuzumab being used for therapy []q. [employer] Association for Supportive Care in Cancer (MASCC) Risk Index score of less than 21[C](33)(35). []V. Isolation required (eg, tuberculosis that requires isolation, Ebola infection)[D](36)(37)(38)(39)(40) []. Gangrene that requires treatment beyond emergency or observation level care(41)(42) []VII. Antitoxin administration and ongoing observation required (eg, tetanus, botulism)(43)(44) []. Suspected infection with rapid progression or severe symptoms as indicated by ANY ONE of the following(45): []a. Streptococcal or staphylococcal toxic shock(46) []b. Diphtheria(47) []c. Hantavirus(48) []d. Severe acute respiratory syndrome(8)(49) []e. Anthrax(50) []f. Ebola[D](36)(37)(38) []g. Necrotizing soft tissue infection(41)(42) []h. Plague(50) []i. Other suspected infection that requires care beyond emergency or observation level care []VII. Severe adverse drug or systemic toxin reaction as indicated by ANY ONE of the following(24): []a. Serotonin syndrome(51)(52) []b. Neuroleptic malignant syndrome(51)(52) []c. Cholinergic syndrome with severe symptoms (eg, bronchorrhea, weakness , mental status changes, seizures)(53) []d. Anticholinergic syndrome []e. Sympathetic syndrome with severe symptoms (eg, seizures, mental status changes, cardiac dysrhythmias) []f. Other severe adverse drug or systemic toxin reaction that remains after emergency or observation level care (as appropriate) []VIII. Allergic reaction with severe symptoms (not responsive to emergency or observation care treatment as appropriate), including ANY ONE of the following(54): []a. Airway edema (pharyngeal, epiglottic, or laryngeal edema) []b. Stridor []c. Respiratory failure []d. Bronchospasm []e. Hypotension []IX. Environmental emergency (not responsive to emergency or observation care treatment as appropriate) as indicated by ANY ONE of the following(55)(56): []a. Hyperthermia []b. Heat stroke []c. Heat exhaustion []d. Hypothermia (temperature less than 95 degrees F (35 degrees C) rectal) (57) []e. Electrocution(58) []X. Complications of transplanted organ (ie, not covered elsewhere)[E] indicated by ANY ONE of the following(59): []a. Acute graft rejection (or graft vs. host disease)[F] requiring inpatient management (eg, intravenous immunosuppression)(60)(61)(62)( 63) []b. Acute failure of transplanted organ necessitating inpatient care (eg, cannot be managed in other setting) []c. Infection requiring inpatient management (eg, Hemodynamic instability, need for intravenous antimicrobial treatment)(64)(65) []d. Other complication of transplanted organ requiring inpatient management []XI. Systemic or Infectious Condition condition, symptom, or finding for which emergency and observation care have failed or are not considered appropriate. See General Criteria: Observation Care, General Admission Criteria or Pediatric General Admission Criteria guideline as appropriate. (Contents from SEVERE SEPSIS and SYSTEMIC OR INFECTIOUS CONDITION clinical indications for admission to inpatient care have been integrated in this form) The original [facility] content created by [facility] has been revised. The portions of the content which have been revised are identified through the use of italic text or in bold and [facility] has neither reviewed nor approved the modified material. All other unmodified content is copyright [facility]. Please see references footnoted in the original [facility] edition 2016 Admission Criteria Met: Yes
[2017-06-25] MEDS: VANCOMYCIN 1,250 MG in NACL 0.9% 250ML 250 ML IV SCH (06:15)
[2017-06-25] MEDS: TYLENOL PO PRN (07:45)
[2017-06-25 08:13] LABS: Basophils % (Auto) 0.1 % (0.0-1.8); Hematocrit 30.5 % (35.5-45.6); Hemoglobin 9.7 gm/dl (11.8-15.2); Mean Corpuscular HGB Conc 32 % (32-34); Mean Corpuscular Hemoglobin 29 pg (28-32); Mean Corpuscular Volume 90 fl (84-94); Platelet Count 271 K/mm3 (140-440); Red Cell Distribution Width 16.1 % (13.2-15.2); White Blood Count 19.7 K/mm3 (4.5-11.0)
[2017-06-25 08:26] LABS: Anion Gap 16 mmol/L; BUN/Creatinine Ratio 8.46; Blood Urea Nitrogen 11 mg/dL (9-20); Carbon Dioxide 22 mmol/L (22-30); Chloride 97.8 mmol/L (98-107); Glucose 125 mg/dL (75-100); Sodium 133 mmol/L (137-145)
[2017-06-25 08:33] VITALS: BP 114/60
--- NOTE | 2017-06-25 10:09 | Discharge Summary ---
Providers - Providers Date of Admission: 06/23/17 07:36 Date of discharge: 06/25/17 Attending physician: KAMI MOTA 06/25/17 08:12 Consult to Physician [CONS] Routine Consulting Provider: LISA VILLASENOR Reason For Exam: fever Primary care physician: [employer] Hospitalization Reason for admission: fever Condition: Stable Hospital course: 41-year-old male with no medical history presented to the emergency room with complaint of fever, sore throat and dental pain for the last month. Patient stated he had been having intermittent chills over the course of last month. Over the last couple of days, prior to admission, he's had significant pain in his teeth. He complained of a headache and a fever. He had no photophobia. He also complained of some neck pain but he had no neck stiffness or meningismus. Denied shortness of breath dysuria. 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 Patient denied any cough or cold-like symptoms. No nausea or vomiting. No frequency or dysuria. Patient was admitted to the hospital with diagnosis of sepsis. Patient was started on IV antibiotics and cultures were obtained. Later during the hospitalization, patient complained of diarrhea. Stool however was negative for C. difficile and fecal leukocytes. Initial urine and blood cultures were found to be negative. Patient was scheduled for ID consultation, echocardiogram and CT scan of the abdomen and pelvis for further evaluation. However, patient stated that he did not want to stay. I explained to the patient the risks of leaving the hospital including related to his sepsis. Unfortunately, patient left AMA. Dedicated discharge time 31 minutes. Disposition: [id number] LEFT AGAINST MED ADVICE Time spent for discharge: 31 Core Measure Documentation - Palliative Care Palliative Care/ Comfort Measures: Not Applicable - Core Measures Any of the following diagnoses?: none Exam - Constitutional Vitals: Temp Pulse Resp BP Pulse Ox 103 F H 88 18 114/60 97 06/25/17 08:00 06/25/17 08:00 06/25/17 08:00 06/25/17 08:00 06/25/17 08:00 General appearance: Present: no acute distress, well-nourished - EENT Eyes: Present: PERRL ENT: hearing intact, clear oral mucosa - Neck Neck: Present: supple, normal ROM - Respiratory Respiratory effort: normal Respiratory: bilateral: CTA - Cardiovascular Heart Sounds: Present: S1 & S2. Absent: rub, click - Extremities Extremities: pulses symmetrical, No edema Peripheral Pulses: within normal limits - Abdominal General gastrointestinal: Present: soft, non-tender, non-distended, normal bowel sounds Male genitourinary: Present: normal - Integumentary Integumentary: Present: clear, warm, dry - Musculoskeletal Musculoskeletal: gait normal, strength equal bilaterally - Psychiatric Psychiatric: appropriate mood/affect, intact judgment & insight - Neurologic Neurologic: CNII-XII intact, moves all extremities Plan Follow up with: PRIMARY CARE, [Primary Care Provider] - 3-5 Days
[2017-06-25] MEDS ORDERED: ZOSYN/NS 4.5GM/100ML 4.5 GM/100 ML VIAL IV SCH (14:00)
== END 2017-06-25 10:17 | disposition left against medical advice (07) | DRG 871 ==
LOC: ED 23:07 → 3A 06-23 07:36
PROVIDERS: ADMIT Hospitalist; ATTEND Hospitalist
PROC: 4A033R1 Measurement of Arterial Saturation, Peripheral, Percutaneous Approach (ICD-10-PCS; principal; 2017-06-23)
DX: A41.9 Sepsis, unspecified organism (principal); R65.21 Severe sepsis with septic shock; R19.7 Diarrhea, unspecified; R51 Headache; R73.9 Hyperglycemia, unspecified; Z79.899 Other long term (current) drug therapy; Z87.891 Personal history of nicotine dependence
CPT/HCPCS: 36415; 36600; 70450; 71020; 80048; 80053; 81001; 82140; 82270; 82803; 82805; 83036; 85007; 85025; 85610; 86850; 86900; 86901; 87040; 87045; 87086; 87116; 87430; 87493; 96361; 96374; 96375; 99285; J0696; J1650; J1885; J2270; J2543; J3370; J7030; J7050

== ENCOUNTER 2022-05-08 07:52 | Emergency (ER) | payer SELFPAY ==
[2022-05-08 08:28] LABS: Basophils # (Auto) 0.1 K/mm3 (0.0-0.1); Basophils % (Auto) 0.7 % (0.0-1.8); Eosinophils % (Auto) 0.2 % (0.0-4.3); Hematocrit 42.4 % (35.5-45.6); Hemoglobin 13.9 gm/dl (11.8-15.2); Lymphocytes # (Auto) 2.1 K/mm3 (1.2-5.4); Lymphocytes % (Auto) 11.6 % (13.4-35.0); Mean Corpuscular HGB Conc 33 % (32-34); Mean Corpuscular Volume 95 fl (84-94); Monocytes # (Auto) 0.5 K/mm3 (0.0-0.8); Monocytes % (Auto) 2.6 % (0.0-7.3); Platelet Count 266 K/mm3 (140-440); Red Blood Count 4.46 M/mm3 (3.65-5.03); Red Cell Distribution Width 14.4 % (13.2-15.2)
[2022-05-08 09:19] LABS: Alanine Aminotransferase 17 units/L (7-56); Albumin 4.6 g/dL (3.9-5); BUN/Creatinine Ratio 10; Blood Urea Nitrogen 10 mg/dL (9-20); Calcium 10.2 mg/dL (8.4-10.2); Hemolysis Index 16
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
[2022-05-08 11:05] LABS: Bilirubin,Urine NEG (Negative); Blood,Urine NEG (Negative); Color,Urine Yellow (Yellow)
[2022-05-08] MEDS ORDERED: ONDANSETRON 4 MG/2 ML INJ IV ONE (11:18)
[2022-05-08] MEDS ORDERED: fentaNYL 100 MCG/2 ML INJ IV ONE (11:18)
[2022-05-08 11:38] LABS: Amorphous Crystals,Urine Few; Mucus,Urine 2+ /HPF
--- NOTE | 2022-05-08 12:34 | Cat Scan Report ---
CT abdomen pelvis w con INDICATION: abdominal pain. COMPARISON: NoneCT ABDOMEN and PELVIS: TECHNIQUE: Abdominal and pelvic CT exam performed. All CT scans at this location are performed using CT dose reduction for ALARA by means of automated exposure control. FINDINGS: Lung Bases: No significant abnormality. Liver: No significant abnormality. Biliary: No significant abnormality. Spleen: No significant abnormality. Pancreas: No significant abnormality. Adrenals: No significant abnormality. Kidneys: Small simple right renal cyst. No significant abnormality. Lymphatics: No lymphadenopathy. Vasculature: There appears to be moderate narrowing of the celiac artery origin. The diaphragmatic c rura is seen on axial imaging just superior to the stenosis on image 50 series 2. Bowel: No significant abnormality. Appendix is nonvisualized. On coronal imaging there appears to be blind ending outpouching on image 51 of series 601. However, this appears to be decompressed small b owel loops on sagittal imaging. However, no inflammatory changes in the right lower quadrant to sugge st appendicitis. Pelvis: No significant abnormality. Osseous Structures: No aggressive osseous lesion. Additional Findings: None IMPRESSION: 1. 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 2. The appendix is not visualized but no inflammation is seen to suggest an associated appendicitis. Signer Name: Harris Young MD Signed: 05/08/2022 12:30 PM Workstation Name: [id number]
[2022-05-08 13:45] VITALS: BP 110/64
== END 2022-05-08 14:00 | disposition home or self-care (01) ==
LOC: ED 07:52
DX: R10.9 Unspecified abdominal pain (principal); R11.2 Nausea with vomiting, unspecified
CPT/HCPCS: 36415; 74177; 80053; 81001; 83690; 85025; 96374; 96375; 99284; J2405; J3010; Q9967